=== PATIENT | male | born 1985 | race Hispanic/Latino ===

== ENCOUNTER 2023-03-10 17:23 | Emergency (ER) | payer OTHER ==
[~2023-03-10] VITALS: Ht 180.3 cm; Wt 117.9 kg
[2023-03-10] MEDS ORDERED: PREDNISONE 20 MG TAB PO ONE (18:00)
[2023-03-10 19:13] VITALS: BP 159/80; O2SAT 100
== END 2023-03-10 19:14 | disposition home or self-care (01) ==
LOC: ER 17:54
DX: G51.0 Bell's palsy (principal)
CPT/HCPCS: 70450; 99283; J7512